=== PATIENT | male | born 1930 | race Caucasian/White ===

== ENCOUNTER → 2019-04-08 12:27 | Outpatient (CLI) | payer MEDICARE, OTHER | END | disposition home or self-care (01) | LOC: D.RAD 12:27 | PROVIDERS: ATTEND Family Medicine | DX: R13.10 Dysphagia, unspecified (principal); E03.9 Hypothyroidism, unspecified; I82.1 Thrombophlebitis migrans; J30.9 Allergic rhinitis, unspecified; M15.0 Primary generalized (osteo)arthritis; Z72.0 Tobacco use ==

== ENCOUNTER → 2020-01-31 13:06 | Outpatient (CLI) | payer MEDICARE, OTHER | END | disposition home or self-care (01) | LOC: D.RAD 13:00 | PROVIDERS: ATTEND Family Medicine | DX: I69.991 Dysphagia following unspecified cerebrovascular disease (principal) ==

== ENCOUNTER → 2020-09-11 09:33 | Outpatient (CLI) | payer MEDICARE, OTHER ==
[2020-06-08 16:39] VITALS: BMI 24.2
[~2020-09-11 09:33] MED LIST: ELIQUIS5 MG PO; FERROUS SULFAT325 MG PO; HYTRIN10 MG PO; REMERON15 MG PO; SPIRIVA18 MCG INH; TIROSINT125 MCG PO
[2020-09-11 10:25] LABS: BACTERIA FEW HPF (NONE SEEN); BILIRUBIN NEGATIVE (NEGATIVE); KETONE NEGATIVE (NEGATIVE); NITRITE NEGATIVE (NEGATIVE); SQUAMOUS EPITHELIAL OCC HPF (0-4); UROBILINOGEN NORMAL mg/dL (< 2); WHITE CELLS - URINE RARE HPF (0-1)
== END | disposition home or self-care (01) ==
LOC: D.LABREF 09:33
PROVIDERS: ATTEND Family Medicine
DX: R53.83 Other fatigue (principal); R41.0 Disorientation, unspecified